=== PATIENT | male | born 1970 | race Caucasian/White ===

== ENCOUNTER 2024-11-13 06:08 | Day surgery (SDC) | payer BC, SELFPAY ==
[2024-11-13 14:29] VITALS: BMI 52.4
[2024-11-13 14:30] VITALS: BP 156/104
[2024-11-13 16:05] VITALS: BP 133/82
[2024-11-13 16:20] VITALS: BP 135/85
== END 2024-11-13 16:40 | disposition home or self-care (01) ==
LOC: GI 06:08
PROVIDERS: ATTENDING PHYSICIAN Internal Medicine Gastroenterology
DX: Z12.11 Encounter for screening for malignant neoplasm of colon (principal); D12.8 Benign neoplasm of rectum; Z86.0101 Personal history of adenomatous and serrated colon polyps
CPT/HCPCS: 45385; 88305